=== PATIENT | female | born 1955 | race Caucasian/White ===

== ENCOUNTER 2024-01-14 06:49 | Day surgery (SDC) | payer OTHER ==
[~2024-01-14] VITALS: Ht 134.6 cm; Wt 74.8 kg
[2024-01-14 08:08] VITALS: O2SAT 95
[2024-01-14] MEDS ORDERED: LR 1,000 ML IV.SOLN IV ONE (08:41)
[2024-01-14] MEDS ORDERED: PROPOFOL 200MG/ 20ML VIAL (DIPRIVAN) IV ONE (08:41)
[2024-01-14] MEDS ORDERED: MIDAZOLAM HCL 2 MG/2 ML VIAL (VERSED) ONE (08:41)
[2024-01-14] MEDS ORDERED: PHENYLEPHRINE HCL 10 MG/ML VIAL (NEOSYNEPHRINE) ONE (08:41)
[2024-01-14] MEDS ORDERED: fentaNYL CITRATE/PF 100 MCG/2 ML AMP ONE (08:41)
[2024-01-14] MEDS ORDERED: ONDANSETRON HCL 4 MG/2 ML VIAL IVP PRN (09:00)
[2024-01-14] MEDS ORDERED: MORPHINE 4 MG INJ. 4 MG/ML VIAL IVP PRN (09:00)
[2024-01-14] MEDS ORDERED: MIDAZOLAM HCL 5 MG/5 ML VIAL IVP PRN (09:00)
[2024-01-14] MEDS ORDERED: LR 1,000 ML IV SCH (09:00)
[2024-01-14 12:07] VITALS: BP_SYST 142; PULSE 70; RESP 17
== END 2024-01-14 11:44 | disposition home or self-care (01) ==
LOC: SDS 06:49 → SMU 06:54 → SDS 11:44
PROVIDERS: ATTEND Student in an Organized Health Care Education/Training Program
DX: K62.5 Hemorrhage of anus and rectum (principal); K57.30 Diverticulosis of large intestine without perforation or abscess without bleeding; K64.8 Other hemorrhoids; F17.210 Nicotine dependence, cigarettes, uncomplicated; I10 Essential (primary) hypertension; E24.2 Drug-induced Cushing's syndrome; E27.3 Drug-induced adrenocortical insufficiency; D84.821 Immunodeficiency due to drugs; K21.9 Gastro-esophageal reflux disease without esophagitis; G70.00 Myasthenia gravis without (acute) exacerbation; Z79.899 Other long term (current) drug therapy
CPT/HCPCS: 45378; G0378; J3465; J2370; J2704; J3010; J7120